=== PATIENT | male | born 1950 | race Caucasian/White ===

== ENCOUNTER 2019-02-21 16:03 | Inpatient (IN) ==
[2019-02-21] MEDS ORDERED: 0.9 % Sodium Chloride 1,000 ML IVC ONE ×2 (16:33→21:16)
--- NOTE | 2019-02-21 16:33 | Emergency Department Note ---
Disposition Clinical Impression: TEMO (acute kidney injury) UTI (urinary tract infection) Qualifiers: Urinary tract infection type: site unspecified Hematuria presence: with hematuria Qualified Code(s): N39.0 - Urinary tract infection, site not specified Urolithiasis Qualifiers: Urinary calculus location: ureter Qualified Code(s): N20.1 - Calculus of ureter Disposition: Admitted As Inpatient Condition: Undetermined Time of Disposition: 19:14 Abdominal Pain HPI - General Chief Complaint: ED Abdominal Pain Stated Complaint: Abdominal pain Time Seen by Provider: 02/21/19 16:07 Source: patient, EMS Mode of arrival: EMS Limitations: no limitations Nursing Notes Reviewed: Yes Vital Signs Reviewed: Yes - History of Present Illness HPI Narrative: 68-year-old male with complaint of right lower quadrant and right flank abdominal pain that started earlier this morning. Associated nausea without vomiting. Patient also states that he is having some difficulty urinating with this. Patient denies any other complaints at this time. He is uncomfortable on evaluation and mildly diaphoretic. The patient has extreme and exquisite tenderness to the right lower quadrant. No other acute complaints noted at this time. The patient was sent from the [place] urgent care for evaluation as there imaging machines are currently down. Patient denies any difficulty breathing, chest pain, melena, hematochezia, diarrhea, vomiting. Pain Scale: 8 - Related Data Home Medications Medication Instructions Recorded Confirmed Cetirizine HCl [24Hour Allergy] 10 mg PO DAILY 02/21/19 02/21/19 Fluticasone Propionate Nasal 50 mcg NS BID PRN 02/21/19 02/21/19 [Flonase] Ketotifen Fumarate [Zaditor] 1 drop BOTH EYES BID 02/21/19 02/21/19 Lisinopril [Zestril] 20 mg PO DAILY 02/21/19 02/21/19 Simvastatin [Zocor] 20 mg PO HS 02/21/19 02/21/19 Tamsulosin [Flomax] 0.4 mg PO DAILY 02/21/19 02/21/19 Allergies Allergy/AdvReac Type Severity Reaction Status Date / Time No Known Allergies Allergy Verified 02/21/19 16:11 All systems ED: reviewed and negative except as stated. Constitutional: Denies: fever, chills, weakness Cardiovascular: Denies: chest pain Respiratory: Denies: dyspnea Gastrointestinal: Reports: abdominal pain, nausea. Denies: vomiting, diarrhea, constipation, hematemesis, melena, hematochezia Genitourinary: Denies: urgency, dysuria Musculoskeletal: Denies: back pain, neck pain Integumentary: Denies: rash Neurological: Denies: headache Abdominal Pain PMH - Past Medical History Medical history: Reports: hyperlipidemia, hypertension Reports: diverticulosis Male Surgical History: Reports: knee replacement Psychiatric history: Reports: no psych history - Social History Smoking status: Never smoker Alcohol use: Reports: rarely Drug use: Reports: none Physical Exam - General Limitations: no limitations General appearance: alert, in no apparent distress - Head Head exam: atraumatic, normocephalic, normal inspection - Eye Eye exam: Present: normal appearance, PERRL, EOMI - ENT ENT exam: normal exam, normal oropharynx, mucous membranes moist - Neck Neck exam: Present: normal inspection, full ROM, trachea midline - Chest Chest inspection: Present: normal inspection, symmetric chest wall rise - Respiratory Respiratory exam: Present: normal lung sounds bilaterally - Cardiovascular Cardiovascular exam: Present: regular rate, normal rhythm, normal heart sounds - Abdominal Exam Abdominal exam: Present: soft, tenderness (RLQ and right flank), guarding, ten derness at [place]'s Point. Absent: distention, rebound, rigidity, Whitley's sign, Rovsing's sign, hernia - Extremities Exam Extremities exam: Present: normal inspection, full ROM, normal capillary refill. Absent: tenderness, pedal edema - Neurological Exam Neurological exam: Present: alert, oriented X3 - Skin Skin exam: Present: warm, dry, intact, normal color Course Vital Signs Temperature 98.2 F 02/21/19 16:12 Pulse Rate 65 02/21/19 16:12 Respiratory Rate 16 02/21/19 16:12 Blood Pressure 129/80 02/21/19 16:12 O2 Sat by Pulse Oximetry 99 02/21/19 16:12 Temperature 98.2 F 02/21/19 16:12 Pulse Rate 65 02/21/19 16:12 Respiratory Rate 16 02/21/19 16:12 Blood Pressure 129/80 02/21/19 16:12 O2 Sat by Pulse Oximetry 99 02/21/19 16:12 Oxygen Delivery Oxygen Delivery Room Air Abdominal Pain - MDM Narrative Medical decision making narrative: Patient's workup in the emergency department demonstrates a leukocytosis. The patient's urine appears to be infected. There appears to be a 4 mm stone at the right UVJ. 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 Patient's kidney function is sitting in a GFR 49. I do not have previous to 4 on record and the patient has a horseshoe kidney. With the hydronephrosis, what appears to be possible [place] eye combined with the infected stone, we will treat the patient with Rocephin here in the ED and consult urology. Urology recommended conservative management at this time. I spoke with hospitalist who agrees to accept the patient to admission. Accepted by Dr. Ballesteros. - Lab Data Lab results reviewed: Yes I reviewed the patient's lab results. Result diagrams: 02/21/19 16:27 02/21/19 16:27 Lab Results 02/21/19 02/21/19 02/21/19 Range/Units 15:20 16:27 16:27 WBC 13.1 H (4.3-11.1) K/mcL RBC 5.06 (4.19-5.50) M/mcL Hgb 15.6 (12.9-16.9) g/dL Hct 45.9 (37.5-50.1) % MCV 90.7 (83.0-100.0) fL MCH 30.8 (28.0-33.3) pg MCHC 34.0 (31.6-35.5) g/dL RDW 13.2 (11.5-14.5) % Plt Count 289 (140-400) K/mcL MPV 10.7 (9.4-12.4) fL Immature Gran % 0.4 (0-4) % Seg Neutrophils % 81.9 % Lymphocytes % 9.0 % Monocytes % 8.4 % Eosinophils % 0.1 % Basophils % 0.2 % Neutrophils # 10.8 H (1.6-8.9) K/mcL Lymphocytes # 1.2 (0.6-4.6) K/mcL Monocytes # 1.1 (0.0-1.3) K/mcL Eosinophils # 0.0 (0.0-0.6) K/mcL Basophils # 0.0 (0.0-0.2) K/mcL Sodium 141 (136-145) mEq/L Potassium 3.4 L (3.5-5.1) mEq/L Chloride 106 (98-107) mEq/L Carbon Dioxide 18 L (23-29) mEq/L BUN 19 (8-23) mg/dL Creatinine 1.42 H (0.70-1.30) mg/dL Est GFR ( Amer) 60 (> 60) Est GFR (Non-Af Amer) 49 L (> 60) BUN/Creatinine Ratio 13 (6-26) Glucose 140 H (70-105) mg/dL Calculated Osmolality 297 (280-300) Calcium 9.7 (8.6-10.3) mg/dL Total Bilirubin 1.2 H (0.3-1.0) mg/dL Direct Bilirubin 0.2 (0.0-0.2) mg/dL Indirect Bilirubin 1.0 (0.0-1.2) mg/dL AST 17 (13-39) Units/L ALT 19 (7-52) Units/L Alkaline Phosphatase 43 (34-104) Units/L Serum Total Protein 7.0 (6.4-8.9) g/dL Albumin 4.6 (3.5-5.7) g/dL Globulin 2.4 (2.4-3.5) g/dL Albumin/Globulin Ratio 1.9 (1.1-2.2) Urine Color Yellow (Yellow) Urine Clarity Clear (Clear) Urine pH 6.5 (5.0-8.0) pH Units Ur Specific [place] 1.011 (1.010-1.025) Urine Protein Trace (Neg-Trace) mg/dL Urine Glucose (UA) Normal (Normal) mg/dL Urine Ketones 40 H (Negative) mg/dL Urine Blood Small H (Negative) Urine Nitrite Negative (Negative) Urine Bilirubin Negative (Negative) Urine Urobilinogen Normal (Normal) mg/dL Ur Leukocyte Esterase Trace H (Negative) Urine Microscopic RBC 15-30 H (0-3) per hpf Urine Microscopic WBC 15-30 H (0-3) per hpf Ur Squamous Epith Cells Many H (None-Few) per lpf Urine Bacteria Many H (None-Few) per hpf Hyaline Casts Few (None-Few) per lpf Ur Culture Indicated? YES A (NO) - Radiology Data Radiology results reviewed: Yes I reviewed the patient's radiology results. Abdomen/Pelvis CT 02/21/19 16:10 IMPRESSION: Horseshoe kidney with moderate right hydroureteronephrosis secondary to a 4 mm stone in the distal right ureter. D/ / Bonifacio Huddleston MD / Bonifacio Huddleston MD Interpreting Provider: Bonifacio Huddleston MD - EKG Data EKG attestation: Yes I reviewed and interpreted this EKG. EKG results narrative: Heart rate 61 beats for minute. Sinus rhythm. No ST elevation or ST depression noted. PVCs noted. No other acute changes noted. Attestation Statement - Attestation Attestation: I, Jimmie Barriga, examined this patient and my medical decision-making was reviewed with the LEAD SCIENTIST/PA/Advanced Practice Nurse/Resident Physician. I agree with the documented findings, disposition and treatment plan as described except to the extent set forth below. 68-year-old male presents emergency department with concerns of abdominal pain. Patient presents from the [place] for further evaluation. He is diaphoretic on initial evaluation and states that he has right flank pain. Patient does have some mild tenderness to palpation of the right lower quadrant as well. Patient denies recent fever, denies syncopal episode, hematochezia, melena. CT of the abdomen and pelvis shows a horseshoe kidney, ureterolithiasis which is likely the cause of the patient's pain. Patient does have hydroureter and moderate hydronephrosis. CT results were discussed with the patient. Contacted the urologist, Dr. Carroll, who recommended admission to the hospital and he will evaluate in the hospital. Patient had a questionable urinary tract infection he was given antibiotics. Patient was admitted to the hospitalist for further care and evaluation.
[2019-02-21 16:52] LABS: Basophils % 0.2 %; Eosinophils % 0.1 %; Hematocrit 45.9 % (37.5-50.1); Hemoglobin 15.6 g/dL (12.9-16.9); Immature Granulocytes % 0.4 % (0-4); Lymphocytes # 1.2 K/mcL (0.6-4.6); Mean Corpuscular Hemoglobin 30.8 pg (28.0-33.3); Mean Corpuscular Volume 90.7 fL (83.0-100.0); Mean Platelet Volume 10.7 fL (9.4-12.4); Monocytes # 1.1 K/mcL (0.0-1.3); Monocytes % 8.4 %; Neutrophils # 10.8 K/mcL (1.6-8.9); Platelet Count 289 K/mcL (140-400); Red Blood Count 5.06 M/mcL (4.19-5.50); Red Cell Distribution Width 13.2 % (11.5-14.5); Segmented Neutrophils % 81.9 %; White Blood Count 13.1 K/mcL (4.3-11.1)
[2019-02-21 17:25] LABS: Albumin 4.6 g/dL (3.5-5.7); Albumin/Globulin Ratio 1.9 (1.1-2.2); Bilirubin,Direct 0.2 mg/dL (0.0-0.2); Bilirubin,Total 1.2 mg/dL (0.3-1.0); Calcium 9.7 mg/dL (8.6-10.3); Globulin 2.4 g/dL (2.4-3.5); Potassium 3.4 mEq/L (3.5-5.1)
[2019-02-21 17:43] LABS: Bilirubin,Urine Negative (Negative); Blood,Urine Small (Negative); Clarity,Urine Clear (Clear); Color,Urine Yellow (Yellow); Glucose,Urine (UA) Normal (Normal); Ketones,Urine 40 mg/dL (Negative); Leukocyte Esterase,Urine Trace (Negative); Nitrite,Urine Negative (Negative); PH,Urine 6.5 pH Units (5.0-8.0); Protein,Urine Trace mg/dL (Neg-Trace); Specific Gravity,Urine 1.011 (1.010-1.025); Urobilinogen,Urine Normal (Normal)
[2019-02-21 17:46] LABS: Bacteria,Urine Many per hpf (None-Few); Hyaline Casts,Urine Few per lpf (None-Few); RBC,Urine 15-30 per hpf (0-3); Squamous Epithelial Cell,Urine Many per lpf (None-Few); WBC,Urine 15-30 per hpf (0-3)
[2019-02-21] MEDS ORDERED: cefTRIAXone 1,000 MG in Water for inj. (sterile) 20 ML 10 ML IVP ONE (17:57)
[2019-02-21] MEDS ORDERED: Ondansetron 4 MG/2 ML VIAL IVP ONE (18:05)
[2019-02-21] MEDS ORDERED: Ondansetron 4 MG/2 ML VIAL IVP PRN (20:22)
[2019-02-21] MEDS ORDERED: Naloxone 0.4 MG/ML INJ IVP PRN (20:22)
--- NOTE | 2019-02-21 20:31 | Internal Med History&Physical ---
Date of Encounter: 02/21/19 Time of Encounter: 19:24 Internal Medicine - H&P: HPI Chief complaint: Ureteral stone Admitted From: Emergency Dept Plans for Post Hospital Care: Home History of present illness: Mr. Chaudhary is a 68 year old male Patient presents to the emergency department from the [place] for right lower quadrant pain. He says the pain began earlier this morning at around 9 AM, and radiates to his back. He has never had pain like this before, but he has had diverticulitis which she thought may be this was the cause of his current pain. However his previous episode was left sided not the right side. He is also had associated nausea and vomiting, as well as decreased urine output. He has not been able to eat much secondary to nausea. The CT scanner at the [place] was not functioning, so he was referred to the ER for further evaluation. In the emergency room patient's initial vital signs were within normal limits. CBC notable for white count of 13.1 BMP notable for a potassium of 3.4 and a creatinine of 1.42. Urinalysis showed small blood, trace leukocyte esterase, 15-30 white blood cells. Culture indicated An abdomen pelvis CT was performed that showed a horseshoe kidney with moderate right hydronephrosis secondary to a 4 mm stone in the distal right ureter. Patient was started on Rocephin, Flomax, given 1 L of IV fluids and urology on- call was notified. Urology agreed to see the patient in the morning, and agreed to start patient on conservative management. Patient was admitted to the hospital on the hospitalist service with urology consult. Upon my evaluation, patient resting comfortably in the ER bed in no acute distress. He denies chest pain, diarrhea and constipation. His nausea has improved, after receiving Zofran. His right lower quadrant abdominal pain is also improved. He denies smoking, alcohol and other drugs. He has history of obstructive sleep apnea and uses a CPAP machine. He was aware previously that he has a horseshoe kidney. He denies significant family medical history including heart disease, renal disease and diabetes. He is a DNR/DNI. Past Med Surg Social Fam HX - Past Medical History Medical history: hyperlipidemia, hypertension Additional medical history: prostrate Psychiatric history: no psych history - Social History Smoking Status: Never smoker Smokeless Tobacco Status: No Alcohol use: rarely Drug use: none Internal Medicine - H&P: Meds Cetirizine HCl [24Hour Allergy] 10 mg PO DAILY 02/21/19 [History] Fluticasone Propionate Nasal [Flonase] 50 mcg NS BID PRN 02/21/19 [History] Ketotifen Fumarate [Zaditor] 1 drop BOTH EYES BID 02/21/19 [History] Lisinopril [Zestril] 20 mg PO DAILY 02/21/19 [History] Simvastatin [Zocor] 20 mg PO HS 02/21/19 [History] Tamsulosin [Flomax] 0.4 mg PO DAILY 02/21/19 [History] Allergy/AdvReac Type Severity Reaction Status Date / Time No Known Allergies Allergy Verified 02/21/19 16:11 All Systems PM: A 10-system review of systems was performed and is negative for pertinent findings except as documented above in the HPI. - Constitutional Vitals: Temp Pulse Resp BP Pulse Ox 98.2 F 55 18 156/86 97 02/21/19 16:12 02/21/19 18:17 02/21/19 20:22 02/21/19 20:22 02/21/19 18:17 General appearance: Present: cooperative, A&O X 3, pleasant, no acute distress, answers questions appropriately Exam: - - Head Head exam: Present: normal inspection - Eye Eye exam: Present: EOMI, normal appearance - Respiratory Respiratory exam: Present: CTAB. Absent: rales, respiratory distress, rhonchi, wheezes - Cardiovascular Cardiovascular exam: Present: RRR. Absent: diastolic murmur, systolic murmur Additional comments: PVCs seen on monitor - GI/Abdominal GI/Abdominal exam: Present: normal bowel sounds, soft, tenderness Additional comments: Right lower quadrant tenderness with palpation - Extremities Exam Extremities exam: Present: warm, radial pulses palpable and symmetrical. Absent: calf tenderness, pedal edema, tenderness - Neurological Exam Neurological exam: Present: no focal deficits, strengths equal and symetr throug hout. Absent: motor sensory deficit, facial droop, speech deficit - Skin Skin exam: Present: dry, normal color, warm Internal Med - H&P Results - Labs CBC & Chem 7: 02/21/19 16:27 02/21/19 16:27 Labs: Short CBC 02/21/19 Range/Units 16:27 WBC 13.1 H (4.3-11.1) K/mcL Hgb 15.6 (12.9-16.9) g/dL Hct 45.9 (37.5-50.1) % Plt Count 289 (140-400) K/mcL Neutrophils # 10.8 H (1.6-8.9) K/mcL BMP 02/21/19 16:27 Sodium 141 Potassium 3.4 L Chloride 106 Carbon Dioxide 18 L BUN 19 Creatinine 1.42 H Glucose 140 H Calcium 9.7 Liver Function 02/21/19 Range/Units 16:27 Total Bilirubin 1.2 H (0.3-1.0) mg/dL Direct Bilirubin 0.2 (0.0-0.2) mg/dL AST 17 (13-39) Units/L ALT 19 (7-52) Units/L Alkaline Phosphatase 43 (34-104) Units/L Albumin 4.6 (3.5-5.7) g/dL Urine 02/21/19 Range/Units 15:20 Urine Color Yellow (Yellow) Urine Clarity Clear (Clear) Urine pH 6.5 (5.0-8.0) pH Units Ur Specific [place] 1.011 (1.010-1.025) Urine Protein Trace (Neg-Trace) mg/dL Urine Glucose (UA) Normal (Normal) mg/dL - Impressions ITS Impressions Abdomen/Pelvis CT 02/21/19 16:10 IMPRESSION: Horseshoe kidney with moderate right hydroureteronephrosis secondary to a 4 mm stone in the distal right ureter. D/ / Bonifacio Huddleston MD / Bonifacio Huddleston MD Interpreting Provider: Bonifacio Huddleston MD - Assessment and Plan (1) Urolithiasis Current Visit: Yes Status: Acute Assessment and plan: As seen on abdominal CT. Urology notified and will see the patient in the morning. Flomax given in the emergency room. Follow-up urology consult Pain management as needed Nothing by mouth after midnight IV fluid hydration Continue ceftriaxone Qualifiers: Urinary calculus location: ureter Qualified Code(s): N20.1 - Calculus of ureter (2) TEMO (acute kidney injury) Current Visit: Yes Status: Acute Assessment and plan: Patient received 1 L IV fluids in the emergency room. Has history of horseshoe kidney. Repeat labs in the morning Continue IV fluid hydration (3) UTI (urinary tract infection) Current Visit: Yes Status: Acute Assessment and plan: Patient started on ceftriaxone, urine culture pending. Continue ceftriaxone Follow up urine culture Qualifiers: Urinary tract infection type: site unspecified Hematuria presence: with hematuria Qualified Code(s): N39.0 - Urinary tract infection, site not specified; R31.9 - Hematuria, unspecified (4) BENITEZ on CPAP Current Visit: Yes Status: Acute Assessment and plan: Continue CPAP Respiratory therapy consult (5) History of cardiac arrhythmia Current Visit: Yes Status: Acute Assessment and plan: Patient states that he has been worked up out patient for a cardiac arrhythmia, but states that his out patient doctor was no longer concerned about it. On telemetry in the room patient was noted to have an occasional PVC on the monitor. Patient states that he has had his heart stop for a few seconds on occasion. Has been dealing with that for several years. No chest pain. Cardiac telemetry Continue to monitor. (6) DVT prophylaxis Current Visit: Yes Status: Acute Assessment and plan: Subcutaneous heparin - Time Spent With Patient Total time spent is greater than 50% in coordination of care (as documented) at patient's floor/unit and/or counseling patient: Greater than 35 minutes
[2019-02-21] MEDS ORDERED: OXYCODONE Oral CONC 10 MG/0.5 ML ORAL.SYG SL PRN ×2 (21:17)
--- NOTE | 2019-02-21 21:39 | Urology - Consult Note ---
Date of Encounter: 02/21/19 Time of Encounter: 21:37 - Assessment and Plan (1) TEMO (acute kidney injury) Current Visit: Yes Status: Acute Assessment and plan: Unsure of what patient's baseline serum creatinine is. His 1.4 elevation could be related to dehydration. Will encourage fluids by mouth as well as IV. (2) Urolithiasis Current Visit: Yes Status: Acute Assessment and plan: Patient with a distal right ureteral stone. Patient very comfortable upon evaluation. We will continue at this time with medical expulsion therapy. Patient's urinalysis inconclusive in regards to possible UTI. Continue with broad-spectrum antibiotics. No urgent need for stone extraction or stent placement at this time. Will reevaluate tomorrow. Qualifiers: Urinary calculus location: ureter Qualified Code(s): N20.1 - Calculus of ureter (3) Hydronephrosis due to obstruction of ureter Current Visit: Yes Status: Acute Assessment and plan: Patient with moderate hydronephrosis on his right side. This is likely secondary to distal ureteral stone. Expectation that this will resolve with either spontaneous passage of stone or surgical removal. We will place patient on Flomax if he is not ready on this medication. Urology CN:HPI Consult date: 02/21/19 Reason for consult Urology: Hydronephrosis Requesting physician: Thomas Ballesteros History of present illness: Jamin is a 68-year-old male with a history of sudden onset lower abdominal discomfort. Patient also with some nausea. He presented to the [place] urgent care and was transferred to our facility. CT scan had been performed which revealed a distal 4 mm stone. Patient had blood work performed which showed a leukocytosis of 13,000. No fevers. Patient's urinalysis showed trace leukocytes without nitrites. He has been having some persistent nausea but this is improved with medication. His lower abdominal discomfort is currently a 2 out of 10 sharp in nature with no obvious radiation. Patient also admits to not having a bowel movement today and believe some of his discomfort could be related to constipation. Patient having poor by mouth intake today. Past Med Surg Social Fam HX - Past Medical History Medical history: hyperlipidemia, hypertension Additional medical history: prostrate Psychiatric history: no psych history - Past Surgical History Surgical History: no surgical history - Social History Smoking Status: Never smoker Smokeless Tobacco Status: No Alcohol use: rarely Drug use: none - Family History Mother Name: Patient admits to history of kidney stones in both of his parents. Medications and Allergies Cetirizine HCl [24Hour Allergy] 10 mg PO DAILY 02/21/19 [History] Fluticasone Propionate Nasal [Flonase] 50 mcg NS BID PRN 02/21/19 [History] Ketotifen Fumarate [Zaditor] 1 drop BOTH EYES BID 02/21/19 [History] Lisinopril [Zestril] 20 mg PO DAILY 02/21/19 [History] Simvastatin [Zocor] 20 mg PO HS 02/21/19 [History] Tamsulosin [Flomax] 0.4 mg PO DAILY 02/21/19 [History] Allergy/AdvReac Type Severity Reaction Status Date / Time No Known Allergies Allergy Verified 02/21/19 16:11 Review of Systems - Constitutional malaise, no chills, no fever(s), no weight loss - EENT Nose, mouth and throat: no dizziness - Cardiovascular no chest pain, no dyspnea - Gastrointestinal abdominal pain, nausea, vomiting - Genitourinary as per HPI - Musculoskeletal no back pain, no numbness - Integumentary no erythema - Neurological no confusion - Psychiatric no confusion - Hematologic/Lymphatic no easy bruising, no lymphadenopathy - Allergic/Immunologic no throat swelling Exam Initial Vital Signs Temp Pulse Resp BP Pulse Ox 98.2 F 65 16 129/80 99 02/21/19 16:12 02/21/19 16:12 02/21/19 16:12 02/21/19 16:12 02/21/19 16:12 General/Neuological: alert and oriented x 3 Eyes: normal pupils, non-icteric Neck: no lymphadenopathy noted, supple to touch Cardiovascular: RRR, no jvd Respiratory: normal respiratory effort, no wheezing ABD: soft, nontender, no masses palpated, mildly distended Back: no pain on percussion bilaterally Skin: no rashes noted Musculoskeletal: normal gait, FROMx4 Urology Results - Labs 02/21/19 16:27 02/21/19 16:27 Abnormal lab results WBC 13.1 K/mcL (4.3-11.1) H 02/21/19 16:27 10.8 K/mcL (1.6-8.9) H 02/21/19 16:27 Potassium 3.4 mEq/L (3.5-5.1) L 02/21/19 16:27 Carbon Dioxide 18 mEq/L (23-29) L 02/21/19 16:27 1.42 mg/dL (0.70-1.30) H 02/21/19 16:27 Est GFR (Non-Af Amer) 49 (> 60) L 02/21/19 16:27 Glucose 140 mg/dL (70-105) H 02/21/19 16:27 1.2 mg/dL (0.3-1.0) H 02/21/19 16:27 40 mg/dL (Negative) H 02/21/19 15:20 Small (Negative) H 02/21/19 15:20 Ur Leukocyte Esterase Trace (Negative) H 02/21/19 15:20 15-30 per hpf (0-3) H 02/21/19 15:20 15-30 per hpf (0-3) H 02/21/19 15:20 Ur Squamous Epith Cells Many per lpf (None-Few) H 02/21/19 15:20 Many per hpf (None-Few) H 02/21/19 15:20 Ur Culture Indicated? YES (NO) A 02/21/19 15:20 Diabetes panel 02/21/19 Range/Units 16:27 Sodium 141 (136-145) mEq/L Potassium 3.4 L (3.5-5.1) mEq/L Chloride 106 (98-107) mEq/L Carbon Dioxide 18 L (23-29) mEq/L BUN 19 (8-23) mg/dL Creatinine 1.42 H (0.70-1.30) mg/dL Glucose 140 H (70-105) mg/dL Calcium 9.7 (8.6-10.3) mg/dL AST 17 (13-39) Units/L ALT 19 (7-52) Units/L Alkaline Phosphatase 43 (34-104) Units/L Albumin 4.6 (3.5-5.7) g/dL Calcium panel 02/21/19 Range/Units 16:27 Calcium 9.7 (8.6-10.3) mg/dL Albumin 4.6 (3.5-5.7) g/dL Pituitary panel 02/21/19 Range/Units 16:27 Sodium 141 (136-145) mEq/L Potassium 3.4 L (3.5-5.1) mEq/L Chloride 106 (98-107) mEq/L Carbon Dioxide 18 L (23-29) mEq/L BUN 19 (8-23) mg/dL Creatinine 1.42 H (0.70-1.30) mg/dL Glucose 140 H (70-105) mg/dL Calcium 9.7 (8.6-10.3) mg/dL Adrenal panel 02/21/19 Range/Units 16:27 Sodium 141 (136-145) mEq/L Potassium 3.4 L (3.5-5.1) mEq/L Chloride 106 (98-107) mEq/L Carbon Dioxide 18 L (23-29) mEq/L BUN 19 (8-23) mg/dL Creatinine 1.42 H (0.70-1.30) mg/dL Glucose 140 H (70-105) mg/dL Calcium 9.7 (8.6-10.3) mg/dL Total Bilirubin 1.2 H (0.3-1.0) mg/dL AST 17 (13-39) Units/L ALT 19 (7-52) Units/L Alkaline Phosphatase 43 (34-104) Units/L Albumin 4.6 (3.5-5.7) g/dL All other labs normal. - Imaging CT scan - abdomen: image reviewed CT scan - pelvis: image reviewed (Personally reviewed CT scan revealed distal 4 mm stone at the right UVJ with horseshoe kidney) Consult Discharge Plan - Plan [facility]Primary Care Provider[facility] -
[2019-02-22] MEDS: *HR* Heparin 5,000 UNIT/ML VIAL SQ SCH ×2 (05:46→18:31)
[2019-02-22 07:38] LABS: Hematocrit 41.2 % (37.5-50.1); Mean Corpuscular HGB Conc 33.3 g/dL (31.6-35.5); Mean Corpuscular Hemoglobin 30.9 pg (28.0-33.3); Mean Corpuscular Volume 92.8 fL (83.0-100.0); Mean Platelet Volume 10.7 fL (9.4-12.4); Platelet Count 238 K/mcL (140-400); Red Blood Count 4.44 M/mcL (4.19-5.50); Red Cell Distribution Width 13.9 % (11.5-14.5); White Blood Count 9.3 K/mcL (4.3-11.1)
[2019-02-22 07:39] LABS: Hemoglobin 13.7 g/dL (12.9-16.9)
[2019-02-22 07:54] LABS: Calcium 8.2 mg/dL (8.6-10.3); Potassium 3.8 mEq/L (3.5-5.1)
--- NOTE | 2019-02-22 08:13 | Internal Med Progress Note ---
<Yoana Bryant - Last Filed: 02/22/19 13:53> Hospitalist Progress Note - Encounter Date of Encounter: 02/22/19 - Exam Vitals: Temp Pulse Resp BP Pulse Ox 98.2 F 65 17 120/61 95 02/22/19 07:00 02/22/19 07:00 02/22/19 07:00 02/22/19 07:00 02/22/19 07:00 - Assessment and Plan (1) UTI (urinary tract infection) Current Visit: Yes Status: Acute (2) Urolithiasis Current Visit: Yes Status: Acute (3) TEOM (acute kidney injury) Current Visit: Yes Status: Acute (4) DVT prophylaxis Current Visit: Yes Status: Acute (5) BENITEZ on CPAP Current Visit: Yes Status: Acute (6) History of cardiac arrhythmia Current Visit: Yes Status: Acute - Time Spent with Patient Total time spent is greater than 50% in coordination of care (as documented) at patient's floor/unit and/or counseling patient: Internal Medicine: Result - Labs CBC & Chem 7: 02/22/19 06:21 02/22/19 06:21 Labs: Short CBC 02/21/19 02/22/19 Range/Units 16:27 06:21 WBC 13.1 H 9.3 (4.3-11.1) K/mcL Hgb 15.6 13.7 D (12.9-16.9) g/dL Hct 45.9 41.2 (37.5-50.1) % Plt Count 289 238 (140-400) K/mcL Neutrophils # 10.8 H (1.6-8.9) K/mcL BMP 02/21/19 02/22/19 16:27 06:21 Sodium 141 142 Potassium 3.4 L 3.8 Chloride 106 106 Carbon Dioxide 18 L 24 BUN 19 18 Creatinine 1.42 H 1.44 H Glucose 140 H 108 H Calcium 9.7 8.2 L Liver Function 02/21/19 Range/Units 16:27 Total Bilirubin 1.2 H (0.3-1.0) mg/dL Direct Bilirubin 0.2 (0.0-0.2) mg/dL AST 17 (13-39) Units/L ALT 19 (7-52) Units/L Alkaline Phosphatase 43 (34-104) Units/L Albumin 4.6 (3.5-5.7) g/dL Urine 02/21/19 Range/Units 15:20 Urine Color Yellow (Yellow) Urine Clarity Clear (Clear) Urine pH 6.5 (5.0-8.0) pH Units Ur Specific [place] 1.011 (1.010-1.025) Urine Protein Trace (Neg-Trace) mg/dL Urine Glucose (UA) Normal (Normal) mg/dL - Impressions Impressions Abdomen/Pelvis CT 02/21/19 16:10 IMPRESSION: Horseshoe kidney with moderate right hydroureteronephrosis secondary to a 4 mm stone in the distal right ureter. D/ / Bonifacio Huddleston MD / Bonifacio Huddleston MD Interpreting Provider: Bonifacio Huddleston MD Consult Discharge Plan - Plan [facility]errals: [facility] [Primary Care Provider] - - Attending Attestation I examined this patient and my medical decision-making was reviewed with the Resident Physician Dr Solomon. I agree with the documented findings, disposition and treatment plan as described except to the extent set forth below. Mr Chaudhary is admitted with urolithiasis with hydroureteronephrosis awake, overall pain is controlled, now able to be up walking, urinary stream is improving, has not yet passed stone. no fevers, chills, n/v today gen- awake, alert, appears stated age cv- reg rate and rhythm, normal s1s2, no le edema lungs- ctabl, normal resp effort on room air abd- soft, non tender, non distended Urolithiasis with hydroureteronephrosis Possible UTI Possible TEMO, baseline kidney function unknown, stable - appreciate urology input, cont med management, IVFs, npo p mn for possible stone extraction in am Acute Urinary retention- resovled with st cath- cont to monitor further diagnoses and plan as noted by resident <Kirti Solomon - Last Filed: 02/22/19 14:23> Hospitalist Progress Note - Encounter Date of Encounter: 02/22/19 Time of Encounter: 08:00 - Subjective Interval History: Patient admitted for right-sided urolithiasis. Today he is laying in bed with mild distress. He reported that his right side is hurting however is better than at admission. He denies fever, chills, dysuria, nausea, vomiting. He did have some hematuria. He stated he is not passed the stone yet. He stated that urology told him that if he does not passed the stone by Saturday that he will be taken to the OR. - Exam Vitals: Temp Pulse Resp BP Pulse Ox 98.2 F 65 17 120/61 95 02/22/19 07:00 02/22/19 07:00 02/22/19 07:00 02/22/19 07:00 02/22/19 07:00 Exam: Gen.: Vitals noted. No acute distress. AAOx3 HEENT: oropharynx clear, Normocephalic, atraumatic Cardiac: RRR, no murmur, +S1/S2 Pulmonary: CTA bilaterally, no wheezes, rales or rhonchi, equal chest expansion Abdomen: soft, right lower quadrant tender, Bowel sounds noted, no guarding Back: right CVA tenderness MSK: ROM intact, no joint swelling noted Extremities: no BLE edema, nontender calf, no cyanosis or clubbing Neuro: A&Ox3, moves all extremities, no focal deficits Psych: Appropriate mood and behavior - Assessment and Plan (1) Urolithiasis Current Visit: Yes Status: Acute Assessment and Plan: Right-sided urolithiasis on abdominal CT -abdomen/pelvis CT showing horseshoe kidney with moderate right hydroureteronephrosis secondary to a 4 mm 7 the distal right ureter. -Urinalysis concerning for potential UTI -afebrile, hemodynamically stable, WC WNL Plan -urology consulted, appreciate recommendations. Per nursing and patient the urologist told the patient that if he does not pass the stone by Saturday then he will take him to the OR for extraction. -Continue IV fluids and encourage oral hydration -continue with Flomax -will strain urine to evaluate for stone -PRN pain medication and Zofran for nausea -continue supportive care (2) UTI (urinary tract infection) Current Visit: Yes Status: Acute Assessment and Plan: Patient denies history of UTI. He denies dysuria. Admits hematuria. -Urinalysis concerning for possible UTI with leukocyte esterase and WBC 15 to 30 -urine culture pending Plan -continue treatment with Rocephin -await urine culture (3) TEMO (acute kidney injury) Current Visit: Yes Status: Acute Assessment and Plan: Acute kidney injury does likely post renal in the setting of urolithiasis on right may also be contributed by prerenal from dehydration. Creatinine at admission 1.42 -creatinine 1.44 worsened -I&O 1000/350 + 650 -straight cath overnight 350cc Plan -continue IV fluids -monitor serum creatinine and urine output -avoid nephrotoxic agents renal dust medications (4) BENITEZ on CPAP Current Visit: Yes Status: Acute Assessment and Plan: History of BENITEZ using the CPAP at bedtime. Continue treatment. (5) History of cardiac arrhythmia Current Visit: Yes Status: Acute (6) DVT prophylaxis Current Visit: Yes Status: Acute Assessment and Plan: Heparin SQ - Time Spent with Patient Total time spent is greater than 50% in coordination of care (as documented) at patient's floor/unit and/or counseling patient: Internal Medicine: Result - Labs CBC & Chem 7: 02/22/19 06:21 02/22/19 06:21 Labs: Short CBC 02/21/19 02/22/19 Range/Units 16:27 06:21 WBC 13.1 H 9.3 (4.3-11.1) K/mcL Hgb 15.6 13.7 D (12.9-16.9) g/dL Hct 45.9 41.2 (37.5-50.1) % Plt Count 289 238 (140-400) K/mcL Neutrophils # 10.8 H (1.6-8.9) K/mcL BMP 02/21/19 02/22/19 16:27 06:21 Sodium 141 142 Potassium 3.4 L 3.8 Chloride 106 106 Carbon Dioxide 18 L 24 BUN 19 18 Creatinine 1.42 H 1.44 H Glucose 140 H 108 H Calcium 9.7 8.2 L Liver Function 02/21/19 Range/Units 16:27 Total Bilirubin 1.2 H (0.3-1.0) mg/dL Direct Bilirubin 0.2 (0.0-0.2) mg/dL AST 17 (13-39) Units/L ALT 19 (7-52) Units/L Alkaline Phosphatase 43 (34-104) Units/L Albumin 4.6 (3.5-5.7) g/dL Urine 02/21/19 Range/Units 15:20 Urine Color Yellow (Yellow) Urine Clarity Clear (Clear) Urine pH 6.5 (5.0-8.0) pH Units Ur Specific [place] 1.011 (1.010-1.025) Urine Protein Trace (Neg-Trace) mg/dL Urine Glucose (UA) Normal (Normal) mg/dL - Impressions Impressions Abdomen/Pelvis CT 02/21/19 16:10 IMPRESSION: Horseshoe kidney with moderate right hydroureteronephrosis secondary to a 4 mm stone in the distal right ureter. D/ / Bonifacio Huddleston MD / Bonifacio Huddleston MD Interpreting Provider: Bonifacio Huddleston MD __ <Yoana Bryant - Last Filed: 02/22/19 13:53> (1) UTI (urinary tract infection) Qualifiers: Urinary tract infection type: site unspecified Hematuria presence: with hematuria Qualified Code(s): N39.0 - Urinary tract infection, site not specified; R31.9 - Hematuria, unspecified (2) Urolithiasis Qualifiers: Urinary calculus location: ureter Qualified Code(s): N20.1 - Calculus of ureter <Kirti Solomon - Last Filed: 02/22/19 14:23> (1) Urolithiasis Qualifiers: Urinary calculus location: ureter Qualified Code(s): N20.1 - Calculus of ureter (2) UTI (urinary tract infection) Qualifiers: Urinary tract infection type: site unspecified Hematuria presence: with hematuria Qualified Code(s): N39.0 - Urinary tract infection, site not specified; R31.9 - Hematuria, unspecified
[2019-02-22] MEDS: 0.9 % Sodium Chloride 1,000 ML IVC SCH ×2 (09:05→18:32)
--- NOTE | 2019-02-22 09:32 | Urology Progress Note ---
Date of Encounter: 02/22/19 Time of Encounter: 09:30 - Assessment and Plan (1) TEMO (acute kidney injury) Current Visit: Yes Status: Acute Assessment and plan: Stable at this time. Unfortunately we do not have any other labs to compare. (2) Urolithiasis Current Visit: Yes Status: Acute Assessment and plan: Patient like to continue with medical expulsion therapy. Patient will try to increase his fluid intake as well as ambulate multiple times today. Patient will be scheduled for KUB in the morning tomorrow. Patient will be placed on the add-on board tomorrow for possible right ureteroscopic stone extraction if he fails to pass a stone. Qualifiers: Urinary calculus location: ureter Qualified Code(s): N20.1 - Calculus of ureter (3) Hydronephrosis due to obstruction of ureter Current Visit: Yes Status: Acute Progress Note Narrative: Patient seen this morning. Patient feeling much better. Patient had straight catheter done last night with only 350 mL's of urine returned. Patient is starting to void better on his own. I personally believe that the patient was significantly dehydrated. Patient's leukocytosis has resolved. Serum creatinine is 10 about the same at 1.44. minimql Pain at this time. Objective Initial Vital Signs Temp Pulse Resp BP Pulse Ox 98.2 F 65 16 129/80 99 02/21/19 16:12 02/21/19 16:12 02/21/19 16:12 02/21/19 16:12 02/21/19 16:12 - General physical appearance Present: well developed, well nourished - Abdomen Present: soft. Absent: tender - Integumentary Present: no rash - Musculoskeletal Present: normal posture - Labs 02/22/19 06:21 02/22/19 06:21 Diabetes panel 02/21/19 02/22/19 Range/Units 16:27 06:21 Sodium 141 142 (136-145) mEq/L Potassium 3.4 L 3.8 (3.5-5.1) mEq/L Chloride 106 106 (98-107) mEq/L Carbon Dioxide 18 L 24 (23-29) mEq/L BUN 19 18 (8-23) mg/dL Creatinine 1.42 H 1.44 H (0.70-1.30) mg/dL Glucose 140 H 108 H (70-105) mg/dL Calcium 9.7 8.2 L (8.6-10.3) mg/dL AST 17 (13-39) Units/L ALT 19 (7-52) Units/L Alkaline Phosphatase 43 (34-104) Units/L Albumin 4.6 (3.5-5.7) g/dL Calcium panel 02/21/19 02/22/19 Range/Units 16:27 06:21 Calcium 9.7 8.2 L (8.6-10.3) mg/dL Albumin 4.6 (3.5-5.7) g/dL Pituitary panel 02/21/19 02/22/19 Range/Units 16:27 06:21 Sodium 141 142 (136-145) mEq/L Potassium 3.4 L 3.8 (3.5-5.1) mEq/L Chloride 106 106 (98-107) mEq/L Carbon Dioxide 18 L 24 (23-29) mEq/L BUN 19 18 (8-23) mg/dL Creatinine 1.42 H 1.44 H (0.70-1.30) mg/dL Glucose 140 H 108 H (70-105) mg/dL Calcium 9.7 8.2 L (8.6-10.3) mg/dL Adrenal panel 02/21/19 02/22/19 Range/Units 16:27 06:21 Sodium 141 142 (136-145) mEq/L Potassium 3.4 L 3.8 (3.5-5.1) mEq/L Chloride 106 106 (98-107) mEq/L Carbon Dioxide 18 L 24 (23-29) mEq/L BUN 19 18 (8-23) mg/dL Creatinine 1.42 H 1.44 H (0.70-1.30) mg/dL Glucose 140 H 108 H (70-105) mg/dL Calcium 9.7 8.2 L (8.6-10.3) mg/dL Total Bilirubin 1.2 H (0.3-1.0) mg/dL AST 17 (13-39) Units/L ALT 19 (7-52) Units/L Alkaline Phosphatase 43 (34-104) Units/L Albumin 4.6 (3.5-5.7) g/dL Consult Discharge Plan - Plan [facility]errals: [facility] [Primary Care Provider] -
[2019-02-22] MEDS ORDERED: cefTRIAXone 1,000 MG in Water for inj. (sterile) 20 ML 10 ML IVP SCH (18:00)
[2019-02-22] MEDS: (Ketotifen Fumarate [Zaditor] 1 DROP) OP SCH (20:42)
[2019-02-23] MEDS: 0.9 % Sodium Chloride 1,000 ML IVC SCH (01:51)
[2019-02-23] MEDS: *HR* Heparin 5,000 UNIT/ML VIAL SQ SCH ×2 (06:00→17:51)
--- NOTE | 2019-02-23 07:22 | Urology Progress Note ---
Date of Encounter: 02/23/19 Time of Encounter: 07:21 - Assessment and Plan (1) TEMO (acute kidney injury) Current Visit: Yes Status: Acute (2) Urolithiasis Current Visit: Yes Status: Acute Assessment and plan: Patient to the operating room later today for right ureteroscopic stone extraction. Qualifiers: Urinary calculus location: ureter Qualified Code(s): N20.1 - Calculus of ureter (3) Hydronephrosis due to obstruction of ureter Current Visit: Yes Status: Acute Progress Note Narrative: Jamin is a 68-year-old male with a history of a distal right ureteral stone. Patient has failed to pass his stone. Pain well-controlled this time. Objective Initial Vital Signs Temp Pulse Resp BP Pulse Ox 98.2 F 65 16 129/80 99 02/21/19 16:12 02/21/19 16:12 02/21/19 16:12 02/21/19 16:12 02/21/19 16:12 - General physical appearance Present: well developed, well nourished - Abdomen Present: soft. Absent: tender - Labs 02/22/19 06:21 02/22/19 06:21 Diabetes panel 02/22/19 Range/Units 06:21 Sodium 142 (136-145) mEq/L Potassium 3.8 (3.5-5.1) mEq/L Chloride 106 (98-107) mEq/L Carbon Dioxide 24 (23-29) mEq/L BUN 18 (8-23) mg/dL Creatinine 1.44 H (0.70-1.30) mg/dL Glucose 108 H (70-105) mg/dL Calcium 8.2 L (8.6-10.3) mg/dL Calcium panel 02/22/19 Range/Units 06:21 Calcium 8.2 L (8.6-10.3) mg/dL Pituitary panel 02/22/19 Range/Units 06:21 Sodium 142 (136-145) mEq/L Potassium 3.8 (3.5-5.1) mEq/L Chloride 106 (98-107) mEq/L Carbon Dioxide 24 (23-29) mEq/L BUN 18 (8-23) mg/dL Creatinine 1.44 H (0.70-1.30) mg/dL Glucose 108 H (70-105) mg/dL Calcium 8.2 L (8.6-10.3) mg/dL Adrenal panel 02/22/19 Range/Units 06:21 Sodium 142 (136-145) mEq/L Potassium 3.8 (3.5-5.1) mEq/L Chloride 106 (98-107) mEq/L Carbon Dioxide 24 (23-29) mEq/L BUN 18 (8-23) mg/dL Creatinine 1.44 H (0.70-1.30) mg/dL Glucose 108 H (70-105) mg/dL Calcium 8.2 L (8.6-10.3) mg/dL Consult Discharge Plan - Plan Referrals: [facility] [Primary Care Provider] -
[2019-02-23 08:15] LABS: Hematocrit 40.3 % (37.5-50.1); Hemoglobin 13.3 g/dL (12.9-16.9); Mean Corpuscular Hemoglobin 30.3 pg (28.0-33.3); Mean Corpuscular Volume 91.8 fL (83.0-100.0); Mean Platelet Volume 10.6 fL (9.4-12.4); Platelet Count 241 K/mcL (140-400); Red Blood Count 4.39 M/mcL (4.19-5.50); Red Cell Distribution Width 13.6 % (11.5-14.5)
[2019-02-23 08:27] LABS: BUN/Creatinine Ratio 13 (6-26); Blood Urea Nitrogen 12 mg/dL (8-23); Calcium 8.6 mg/dL (8.6-10.3); Carbon Dioxide 24 mEq/L (23-29); Chloride 110 mEq/L (98-107); Glucose 114 mg/dL (70-105); Osmolality,Calculated 293 (280-300); Potassium 3.8 mEq/L (3.5-5.1); Sodium 141 mEq/L (136-145); eGFR For African Americans > 60 (> 60); eGFR For Non-African Americans > 60 (> 60)
--- NOTE | 2019-02-23 09:04 | Internal Med Progress Note ---
<Yoana Bryant - Last Filed: 02/23/19 13:53> Hospitalist Progress Note - Encounter Date of Encounter: 02/23/19 - Exam Vitals: Temp Pulse Resp BP Pulse Ox 97.7 F 61 13 142/88 96 02/23/19 12:32 02/23/19 12:32 02/23/19 12:32 02/23/19 12:32 02/23/19 12:32 - Assessment and Plan (1) UTI (urinary tract infection) Current Visit: Yes Status: Acute (2) Urolithiasis Current Visit: Yes Status: Acute (3) TEMO (acute kidney injury) Current Visit: Yes Status: Acute (4) DVT prophylaxis Current Visit: Yes Status: Acute (5) BENITEZ on CPAP Current Visit: Yes Status: Acute (6) History of cardiac arrhythmia Current Visit: Yes Status: Acute - Time Spent with Patient Total time spent is greater than 50% in coordination of care (as documented) at patient's floor/unit and/or counseling patient: Internal Medicine: Result - Labs CBC & Chem 7: 02/23/19 07:30 02/23/19 07:30 Labs: Short CBC 02/23/19 Range/Units 07:30 WBC 6.0 (4.3-11.1) K/mcL Hgb 13.3 (12.9-16.9) g/dL Hct 40.3 (37.5-50.1) % Plt Count 241 (140-400) K/mcL BMP 02/23/19 07:30 Sodium 141 Potassium 3.8 Chloride 110 H Carbon Dioxide 24 BUN 12 Creatinine 0.94 Glucose 114 H Calcium 8.6 - Impressions Impressions Fluoroscopy 02/23/19 00:00 IMPRESSION: Intraprocedural fluoroscopic spot images as above. See separate procedure report for more information. D/ / 02/23/2019 12:16:53 Walt Carter MD / [facility] Interpreting Provider: Walt Carter MD X-Ray 02/23/19 00:00 IMPRESSION: Intraprocedural fluoroscopic spot images as above. See separate procedure report for more information. D/ / 02/23/2019 12:16:53 Walt Carter [facility] Interpreting Provider: Walt Carter MD Consult Discharge Plan - Plan Referrals: [facility] [Primary Care Provider] - - Attending Attestation I examined this patient and my medical decision-making was reviewed with the Resident Physician Dr Cool. I agree with the documented findings, disposition and treatment plan as described except to the extent set forth below. Mr Chaudhary is admitted with urolithiasis with hydroureteronephrosis awake, no further pain, + hematuria yesterday, none today, going to likely be going to OR later. no fevers, chills, n/v. gen- awake, alert, appears stated age cv- reg rate and rhythm, normal s1s2 lungs- ctabl, normal resp effort on room air abd- soft,tender right flank, no gaurding Urolithiasis with hydroureteronephrosis Ruled out UTI- stop abx TEMO suspect was combination pre and post renal, resolved - appreciate urology input, OR lithotripsy and stone extraction w ureteral stent placement -will remove stent in 3-4 days and fu with Urology in 3-4 weeks Acute Urinary retention- resolved with st cath- cont to monitor further diagnoses and plan as noted by resident suspect will be able to dc in am to home <Rebceca Cool - Last Filed: 02/23/19 22:08> Hospitalist Progress Note - Encounter Date of Encounter: 02/23/19 Time of Encounter: 10:10 - Subjective Interval History: Seen and examined this morning at bedside. Patient is resting in bed and appears comfortable. Denies fevers, chills, nausea, vomiting, chest pain, difficulty breathing. Admits to some RLQ abdominal discomfort, which is improved since admission. Endorses no other complaints at this time. - Exam Vitals: Temp Pulse Resp BP Pulse Ox 98.2 F 66 16 132/80 95 02/23/19 07:12 02/23/19 07:12 02/23/19 07:12 02/23/19 07:12 02/23/19 07:12 Exam: Gen.: Vitals noted. No acute distress. HEENT: Normocephalic, atraumatic, EOMI, PERRL, moist mucous membranes Cardiac: RRR, no murmur, +S1/S2 Pulmonary: CTA bilaterally, no wheezes, rales or rhonchi, normal respiratory effort Abdomen: soft, RLQ > RUQ tender, Bowel sounds noted, no guarding or distension MSK: ROM intact, no joint swelling noted Extremities: no lower extremity edema, warm, nontender calves, no cyanosis or clubbing Neuro: Alert and oriented x3, moves all extremities spontaneously, no focal deficits, CN II-XII grossly intact Psych: Appropriate mood and behavior - Assessment and Plan (1) Urolithiasis Current Visit: Yes Status: Acute Assessment and Plan: Right-sided urolithiasis. Abdomen/pelvis CT: horseshoe kidney with moderate right hydroureteronephrosis secondary to 4 mm stone of distal right ureter. UA positive for leukocyte esterase, microscopic WBCs, urine bacteria. Final result UCx negative for growth. Afebrile, no leukocytosis. Urology planning for right ureteroscopic stone extraction today as pt unable to pass stone on his own. Discontinue ceftriaxone. Discontinue IV fluids and encourage oral hydration if pt able to tolerate PO after procedure. Continue with Flomax. PRN pain medication and Zofran for nausea. (2) Hydronephrosis due to obstruction of ureter Current Visit: Yes Status: Acute Assessment and Plan: Urology planning for cystoscopy and stone extraction in OR today. (3) TEMO (acute kidney injury) Current Visit: Yes Status: Resolved Assessment and Plan: Resolved, creatinine was 1.42 on admission. Acute kidney injury most likely combination of pre- and post-renal causes related to right-sided urolithiasis, acute urinary retention. Acute urinary retention appears to be resolved after straight cath. - OR today for stone extraction. - Discontinue IV fluids if tolerating PO intake after procedure. - Recheck serum creatinine on [facility] tomorrow since we are restarting home FELIPA inhibitor for his HTN. - Monitor UOP. (4) Hypertension Current Visit: Yes Status: Chronic Assessment and Plan: Will restart home FELIPA inhibitor now that TEMO has resolved. (5) BENITEZ on CPAP Current Visit: Yes Status: Acute Assessment and Plan: Continue CPAP at bedtime. (6) Hyperlipidemia Current Visit: Yes Status: Acute Assessment and Plan: Continue home dose simvastatin. DVT Prophylaxis: SubQ heparin - Time Spent with Patient Total time spent is greater than 50% in coordination of care (as documented) at patient's floor/unit and/or counseling patient: less than 15 minutes Plan of Care Discussed with: patient Internal Medicine: Result - Labs CBC & Chem 7: 02/23/19 07:30 02/23/19 07:30 Labs: Short CBC 02/23/19 Range/Units 07:30 WBC 6.0 (4.3-11.1) K/mcL Hgb 13.3 (12.9-16.9) g/dL Hct 40.3 (37.5-50.1) % Plt Count 241 (140-400) K/mcL BMP 02/23/19 07:30 Sodium 141 Potassium 3.8 Chloride 110 H Carbon Dioxide 24 BUN 12 Creatinine 0.94 Glucose 114 H Calcium 8.6 <Yoana Bryant - Last Filed: 02/23/19 13:53> (1) UTI (urinary tract infection) Qualifiers: Urinary tract infection type: site unspecified Hematuria presence: with hematuria Qualified Code(s): N39.0 - Urinary tract infection, site not specified; R31.9 - Hematuria, unspecified (2) Urolithiasis Qualifiers: Urinary calculus location: ureter Qualified Code(s): N20.1 - Calculus of ureter <Rebecca Cool - Last Filed: 02/23/19 22:08> (1) Urolithiasis Qualifiers: Urinary calculus location: ureter Qualified Code(s): N20.1 - Calculus of ureter (4) Hypertension Qualifiers: Hypertension type: unspecified Qualified Code(s): I10 - Essential (primary) hypertension
[2019-02-23] MEDS: (Ketotifen Fumarate [Zaditor] 1 DROP) OP SCH (10:15)
--- NOTE | 2019-02-23 10:29 | Anesthesia Evaluation PreOp ---
Date of Encounter: 02/23/19 Time of Encounter: 10:27 - Past History Planned Operation: Ureteroscopic stone extraction Cardiac History: HTN, Hyperlipidemia Pulmonary History: BENITEZ Dx (on cpap x 16yrs) Other Medical History: Renal (stone, hydronephrosis, TEMO), Diabetes Type II (borderline) Anesthesia History: No Prior Anesthetic Complications, Past Anesthesia (gaurav TKR) Alcohol Use: rarely Drug use: none Medications and Allergies Cetirizine HCl [24Hour Allergy] 10 mg PO DAILY 02/21/19 [History] Fluticasone Propionate Nasal [Flonase] 50 mcg NS BID PRN 02/21/19 [History] Ketotifen Fumarate [Zaditor] 1 drop BOTH EYES BID 02/21/19 [History] Lisinopril [Zestril] 20 mg PO DAILY 02/21/19 [History] Simvastatin [Zocor] 20 mg PO HS 02/21/19 [History] Tamsulosin [Flomax] 0.4 mg PO DAILY 02/21/19 [History] Allergy/AdvReac Type Severity Reaction Status Date / Time No Known Allergies Allergy Verified 02/21/19 16:11 - Meds/Allergy Pre-op Review Medications Reviewed: Yes Allergies Reviewed: Yes Beta Blockers on Current Med List: No Anesthesia Results - Labs 02/23/19 07:30 02/23/19 07:30 Anesthesia Exam Vital Signs/O2 Sat, Most Current Temp Pulse Resp BP Pulse Ox 97.9 F 66 16 154/83 95 02/23/19 10:21 02/23/19 10:21 02/23/19 10:21 02/23/19 10:21 02/23/19 10:21 Weight: 105kg NPO (# of Hours): >8 - HEENT Pupil (Motor): Pupils equal, EOMI Mallampati: III Teeth: Poor dentition Oral Opening: Greater than 3 - LUMP ROOM SUPERVISOR LOC: Oriented [employer] SUPERVISOR Motor: Normal RUE, Normal LUE, Normal RLE, Normal LLE, Normal Face [employer]PERVISOR Sensory: Normal: RUE, LUE, RLE, LLE, Face - Cardiac Rhythm: Regular - Pulmonary Breath Sounds: bilateral Clear Respiratory Effort: Symmetrical Anesthesia Assess/Plan ASA Score: 3 Level of consciousness: Cooperative Anesthetic Plan: General Monitoring Plan: Standard Monitors Recovery Plan: PACU
[2019-02-23] MEDS ORDERED: Isovue-300 50 ML VIAL ONE (10:53)
[2019-02-23] MEDS ORDERED: *HR* Succinylcholine 200 MG/10 ML VIAL IVP ONE (10:57)
[2019-02-23] MEDS ORDERED: Lidocaine -MPF 2% 2 ML VIAL ONE (10:57)
[2019-02-23] MEDS ORDERED: Dexamethasone 4 MG/ML VIAL ONE (10:57)
[2019-02-23] MEDS ORDERED: *HR* Propofol 200 MG/20 ML VIAL IVP ONE (10:57)
[2019-02-23] MEDS ORDERED: Ondansetron 4 MG/2 ML VIAL ONE (10:57)
[2019-02-23] MEDS ORDERED: *HR* FentaNYL (PF) 100 MCG/2 ML VIAL ONE (10:57)
[2019-02-23] MEDS ORDERED: *HR* HYDROmorphone (PF) 1 MG/ML SYRINGE IVP PRN (11:16)
[2019-02-23] MEDS ORDERED: *HR* Promethazine 25 MG/ML VIAL IVP PRN (11:16)
[2019-02-23] MEDS ORDERED: Ondansetron 4 MG/2 ML VIAL IVP ONE (11:16)
[2019-02-23] MEDS ORDERED: *HR* OxyCODONE Immed Rel 5 MG TABLET PO PRN (11:16)
[2019-02-23] MEDS ORDERED: Ringers Solution, Lactated 1,000 ML IVC SCH (11:30)
--- NOTE | 2019-02-23 11:55 | Operative Note ---
Date of procedure: 02/23/19 Pre-op diagnosis: Right distal ureteral stone Post-op diagnosis: same Procedure: Right ureteroscopic laser lithotripsy of stone, right ureteroscopic basket retrieval stone fragment, right 4.8 x 26 cm ureteral stent placement Anesthesia: STACEY Surgeon: Stu Carroll Was there an diver assistant present: No Estimated blood loss (cc): 0 Specimen: none Condition: stable Disposition: PACU Procedure in Detail: A shunt was prepped and draped in normal sterile fashion. Timeout procedure performed. I then inserted the semirigid ureteroscope into the patient's bladder. I then was able to cannulate the right ureteral orifice using a sensor wire. This was then placed into the right kidney using fluoroscopy. To note the patient did have a horseshoe kidney. I then matured the scope and then replaced the scope back in the patient's right distal ureter were encountered the form ohmmeter stone. I then using holmium laser fragment the stone. All stone fragments were then removed using a basket device. At this point I then fully surveyed the entire ureter with no further stone seen. I then placed a 4.8 x 26 cm stent with good curl seen in the right kidney as well as in the bladder. String was left for easy removal in 2-3 days.
--- NOTE | 2019-02-23 11:56 | Event Note ---
Date of Encounter: 02/23/19 Time of Encounter: 11:55 Patient okay to discharge home from urology standpoint. Patient can remove his own ureteral stent in 3-4 days. Patient needs follow-up with me in 3-4 weeks.
--- NOTE | 2019-02-23 12:32 | Anesthesia Evaluation Post Op ---
Date of Encounter: 02/23/19 Time of Encounter: 12:31 - Vital Signs Vital Signs: Vital Signs/O2 Sat, Most Current Temp Pulse Resp BP Pulse Ox 97.4 F L 65 19 148/92 94 02/23/19 12:03 02/23/19 12:23 02/23/19 12:23 02/23/19 12:23 02/23/19 12:23 - Lungs Lungs: Clear Ascult./Percussion - Airway Airway: Non-obstructed - Cardiovascular Regular Rate - Mental Status Mental Status: Alert & Oriented, Answers Appropriately - Pain Pain Scale: 0 Pain Scale used: Numeric (1 - 10) - Nausea Vomiting Nausea Vomiting: Not Present - Hydration Hydration: Ice chips - Discharge PostOp Status: Transfer Patient to floor
[2019-02-23] MEDS ORDERED: 0.9 % Sodium Chloride 1,000 ML IVC SCH (12:57)
[2019-02-23] MEDS ORDERED: Ondansetron 4 MG/2 ML VIAL IVP PRN (12:57)
[2019-02-23] MEDS ORDERED: OXYCODONE Oral CONC 10 MG/0.5 ML ORAL.SYG SL PRN (12:57)
[2019-02-23] MEDS ORDERED: Naloxone 0.4 MG/ML INJ IVP PRN (12:57)
[2019-02-23] MEDS: Lisinopril 20 MG TABLET PO SCH (17:50)
[2019-02-23] MEDS ORDERED: (Ketotifen Fumarate [Zaditor] 1 DROP) OP SCH (21:00)
[2019-02-24] MEDS: *HR* Heparin 5,000 UNIT/ML VIAL SQ SCH ×2 (05:26→17:38)
[2019-02-24 07:02] LABS: BUN/Creatinine Ratio 15 (6-26); Blood Urea Nitrogen 15 mg/dL (8-23); Calcium 9.1 mg/dL (8.6-10.3); Carbon Dioxide 22 mEq/L (23-29); Chloride 106 mEq/L (98-107); Glucose 136 mg/dL (70-105); Osmolality,Calculated 291 (280-300); Potassium 3.8 mEq/L (3.5-5.1); Sodium 139 mEq/L (136-145); eGFR For African Americans > 60 (> 60); eGFR For Non-African Americans > 60 (> 60)
[2019-02-24] MEDS: Lisinopril 20 MG TABLET PO SCH (08:54)
--- NOTE | 2019-02-24 10:06 | Internal Med Progress Note ---
<Rebecca Cool - Last Filed: 02/24/19 14:29> Hospitalist Progress Note - Encounter Date of Encounter: 02/24/19 Time of Encounter: 09:20 - Subjective Interval History: Overnight patient's right ureter stent was dislodged accidentally. Per nursing report Dr. Rebolledo urology was called and recommended completing removal of the st ent. This morning patient is in mild to moderate distress secondary to midline suprapubic pain described as stabbing and is feeling nauseous, but no episodes of emesis. Denies chest pain, breathing, fevers, sweats. Admits to chills and states he is freezing. His abdominal pain of RLQ and right CVA resolved, states the pain is now at midline of back. He feels his abdomen is distended and looks larger than normal. - Exam Vitals: Temp Pulse Resp BP Pulse Ox 97.9 F 70 24 183/80 99 02/24/19 07:14 02/24/19 07:14 02/24/19 07:14 02/24/19 07:14 02/24/19 07:14 Exam: Gen.: Appears uncomfortable, mild distress HEENT: Normocephalic, atraumatic, EOMI, PERRL, moist mucous membranes Cardiac: RRR, no murmur, +S1/S2, no edema Pulmonary: CTA bilaterally; no wheezes, rales or rhonchi; normal respiratory effort Abdomen: soft, distended, active Bowel sounds noted; no guarding : suprapubic tenderness on deep palpation MSK: ROM intact, no joint swelling noted Extremities: no lower extremity edema, no cyanosis or clubbing, warm Neuro: Alert and oriented x3, moves all extremities spontaneously, no focal defi cits, CN II-XII grossly intact Psych: Appropriate mood and behavior - Assessment and Plan (1) Urolithiasis Current Visit: Yes Status: Acute Assessment and Plan: Right-sided urolithiasis, now s/p right ureteroscopic stone extraction with stent placement by Dr. Carroll on 02/23/19 Abdomen/pelvis CT: horseshoe kidney with moderate right hydroureteronephrosis secondary to 4 mm stone of distal right ureter. UA positive for leukocyte esterase, microscopic WBCs, urine bacteria. Final result UCx negative for growth. Afebrile throughout admission CBC's have been negative for elevated white count. - Accidental removal of stent last night/early this morning, voided without difficulty or hematuria afterwords. - Repeat CT abd/pelvis: 4mm right UVJ stone seen on previous scan is no longer visible, moderate right hydroureteronephrosis, urinary bladder grossly unremarkable, no gross abnormality of prostate, colonic diverticulosis without focal inflammatory changes to suggest diverticulitis. Encourage oral hydration. Continue with Flomax. PRN Tylenol and Toradol for pain and Zofran for nausea. Urology following. From urology's standpoint, pt can be considered for d/c once adequate pain control achieved. Outpatient f/u with urology in 3-4 weeks. (2) Hydronephrosis due to obstruction of ureter Current Visit: Yes Status: Acute Assessment and Plan: s/p ureteroscopic extraction of right-sided kidney stone with Dr. Carroll 02/23/19. As above. (3) Abdominal pain Current Visit: Yes Status: Acute Assessment and Plan: Suspect this is due to constipation, pt able to pass gas but reports no bowel movement since last week. Repeat abd/pelvis CT findings as discussed above. Start Senna Plus once daily. Avoid opiates for pain control to prevent further constipation. Encourage ambulation. (4) TEMO (acute kidney injury) Current Visit: Yes Status: Resolved Assessment and Plan: Resolved. Creatinine was 1.42 on admission. Acute kidney injury most likely combination of pre- and post-renal causes related to right-sided urolithiasis, acute urinary retention. Acute urinary retention improved after straight cath. Home FELIPA inhibitor restarted yesterday, creatinine continues to be WNL. - Encourage PO fluids. (5) Hypertension Current Visit: Yes Status: Chronic Assessment and Plan: Continue home dose FELIPA inhibitor. Pain management with PRN Tylenol and Toradol. (6) BENITEZ on CPAP Current Visit: Yes Status: Acute Assessment and Plan: Continue CPAP at bedtime. (7) Hyperlipidemia Current Visit: Yes Status: Acute Assessment and Plan: Continue home dose simvastatin. DVT Prophylaxis: SubQ heparin - Time Spent with Patient Total time spent is greater than 50% in coordination of care (as documented) at patient's floor/unit and/or counseling patient: Plan of Care Discussed with: patient Internal Medicine: Result - Labs CBC & Chem 7: 02/23/19 07:30 06/18/19 05:38 Labs: BMP 02/24/19 05:38 Sodium 139 Potassium 3.8 Chloride 106 Carbon Dioxide 22 L BUN 15 Creatinine 0.98 Glucose 136 H Calcium 9.1 - Impressions Impressions Fluoroscopy 02/23/19 00:00 IMPRESSION: Intraprocedural fluoroscopic spot images as above. See separate procedure report for more information. D/ / 02/23/2019 12:16:53 Walt Carter MD / navneet Interpreting Provider: Walt Carter MD X-Ray 02/23/19 00:00 IMPRESSION: Intraprocedural fluoroscopic spot images as above. See separate procedure report for more information. D/ / 02/23/2019 12:16:53 Walt Carter MD / navneet Interpreting Provider: Walt Carter MD Consult Discharge Plan - Plan Additional Instructions: Follow up with your primary doctor within 1-2 weeks of discharge. Follow up with Dr. Carroll of [facility] as an outpatient in 3-4 weeks. Referrals: Stu Carroll MD [Partnered Physician] - [facility] [Primary Care Provider[facility] - <Yoana Bryant - Last Filed: 02/24/19 16:03> Hospitalist Progress Note - Encounter Date of Encounter: 02/24/19 - Exam Vitals: Temp Pulse Resp BP Pulse Ox 98.1 F 79 16 153/82 93 02/24/19 15:42 02/24/19 15:42 02/24/19 15:42 02/24/19 15:42 02/24/19 15:42 - Assessment and Plan (1) UTI (urinary tract infection) Current Visit: Yes Status: Acute (2) Urolithiasis Current Visit: Yes Status: Acute (3) TEMO (acute kidney injury) Current Visit: Yes Status: Resolved (4) DVT prophylaxis Current Visit: Yes Status: Acute (5) BENITEZ on CPAP Current Visit: Yes Status: Acute (6) History of cardiac arrhythmia Current Visit: Yes Status: Acute - Time Spent with Patient Total time spent is greater than 50% in coordination of care (as documented) at patient's floor/unit and/or counseling patient: Internal Medicine: Result - Labs CBC & Chem 7: 02/23/19 07:30 02/24/19 05:38 Labs: BMP 02/24/19 05:38 Sodium 139 Potassium 3.8 Chloride 106 Carbon Dioxide 22 L BUN 15 Creatinine 0.98 Glucose 136 H Calcium 9.1 - Impressions Impressions Abdomen/Pelvis CT 02/24/19 09:26 IMPRESSION: 1. Moderate right-sided hydroureteronephrosis as on the previous exam. The 4 mm stone seen at the right UVJ on the prior study is no longer visible and no ureteral stent is identified. There is a residual tiny punctate 1 mm stone at the right UVJ as described above. 2. 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 3. Colonic diverticulosis without evidence of diverticulitis. 4. Normal appendix. D/ / Jerry Hensley MD / Jerry Hensley MD Interpreting Provider: Jerry Hensley MD - Attending Attestation I examined this patient and my medical decision-making was reviewed with the Resident Physician Dr Cool. I agree with the documented findings, disposition and treatment plan as described except to the extent set forth below. Mr Chaudhary is admitted with urolithiasis with hydroureteronephrosis awake, suprapubic abd pain, + nausea, no fevers, chills or hematuria, urinating. notes no bm since days prior to admit, + flatus d/w Dr Rebolledo and stat CT a/p obtained which was negative PVR obtained and retainging significant urine to remain inpt for pain control gen- awake, alert, appears stated age, in distress from pain cv- reg rate and rhythm, normal s1s2 lungs- ctabl, normal resp effort on room air abd- soft,distended,d iffusely tender with guarding Urolithiasis with hydroureteronephrosis Ruled out UTI TEMO suspect was combination pre and post renal, resolved -OR lithotripsy and stone extraction w ureteral stent placement, pt accidentally removed stent overnight, Uro aware Acute Urinary retention- kline cath to be replaced, will likely dc on it, Uro following abd pain suspect 2/2 acute urinary retention given neg CT and location of symptoms- kline to be placed, bowel regimen for constipation likely contributing -prn pain control and monitor further diagnoses and plan as noted by resident suspect will be able to dc in am to home <Rebecca Cool - Last Filed: 02/24/19 14:29> (1) Urolithiasis Qualifiers: Urinary calculus location: ureter Qualified Code(s): N20.1 - Calculus of ureter (3) Abdominal pain Qualifiers: Abdominal location: lower abdomen, unspecified Qualified Code(s): R10.30 - Lower abdominal pain, unspecified (5) Hypertension Qualifiers: Hypertension type: unspecified Qualified Code(s): I10 - Essential (primary) hypertension (7) Hyperlipidemia Qualifiers: Hyperlipidemia type: unspecified Qualified Code(s): E78.5 - Hyperlipidemia, unspecified <Yoana Bryant - Last Filed: 02/24/19 16:03> (1) UTI (urinary tract infection) Qualifiers: Qualified Code(s): N39.0 - Urinary tract infection, site not specified; R31.9 - Hematuria, unspecified (2) Urolithiasis Qualifiers: Qualified Code(s): N20.1 - Calculus of ureter
[2019-02-24] MEDS ORDERED: Acetaminophen 325 MG TABLET PO PRN (11:50)
[2019-02-24] MEDS: Sennosides/Docusate Sodium TABLET PO SCH (13:17)
--- NOTE | 2019-02-24 13:48 | Urology Progress Note ---
<Faith Nieves N - Last Filed: 02/24/19 13:43> Date of Encounter: 02/24/19 Time of Encounter: 13:30 - Assessment and Plan (1) Urolithiasis Current Visit: Yes Status: Acute Assessment and plan: Patient is a 68-year-old male who presents one day status post right ureteroscopic laser lithotripsy of stone, right ureteroscopic basket retrieval stone fragment, right 4.8 x 26 cm ureteral stent placement. Patient continues with right flank pain and abdominal pain. CT was repeated, and the previously visualized 4 mm right UVJ stone is no longer visible. Patient with stable hydronephrosis. Vital signs are stable and reassuring, and renal function is well within normal range with GFR greater than 60. At this time, there is no urologic surgical intervention indicated. Patient may be considered for discharge once he achieves adequate pain control. Qualifiers: Urinary calculus location: ureter Qualified Code(s): N20.1 - Calculus of ureter Progress Note Narrative: Postoperative day #1. Patient seen and examined lying in bed in no apparent distress. Patient admits to continued abdominal and flank discomfort. Pain is currently well controlled at present. Patient proceeded is voiding well without difficulty, and urine is clear. Objective Initial Vital Signs Temp Pulse Resp BP Pulse Ox 98.2 F 65 16 129/80 99 02/21/19 16:12 02/21/19 16:12 02/21/19 16:12 02/21/19 16:12 02/21/19 16:12 - General physical appearance Present: well developed, no distress, moderate pain - Respiratory Present: normal expansion, normal respiratory effort - Abdomen Present: soft, non tender. Absent: distended - Genitourinary Urine Appearance: Present: Clear - Integumentary Present: no rash, no abnormal pigmentation - Musculoskeletal Present: normal posture - Psychiatric Present: oriented to time, oriented to person, oriented to place, speech is normal, memory intact - Labs 02/23/19 07:30 02/24/19 05:38 Diabetes panel 02/24/19 Range/Units 05:38 Sodium 139 (136-145) mEq/L Potassium 3.8 (3.5-5.1) mEq/L Chloride 106 (98-107) mEq/L Carbon Dioxide 22 L (23-29) mEq/L BUN 15 (8-23) mg/dL Creatinine 0.98 (0.70-1.30) mg/dL Glucose 136 H (70-105) mg/dL Calcium 9.1 (8.6-10.3) mg/dL Calcium panel 02/24/19 Range/Units 05:38 Calcium 9.1 (8.6-10.3) mg/dL Pituitary panel 02/24/19 Range/Units 05:38 Sodium 139 (136-145) mEq/L Potassium 3.8 (3.5-5.1) mEq/L Chloride 106 (98-107) mEq/L Carbon Dioxide 22 L (23-29) mEq/L BUN 15 (8-23) mg/dL Creatinine 0.98 (0.70-1.30) mg/dL Glucose 136 H (70-105) mg/dL Calcium 9.1 (8.6-10.3) mg/dL Adrenal panel 02/24/19 Range/Units 05:38 Sodium 139 (136-145) mEq/L Potassium 3.8 (3.5-5.1) mEq/L Chloride 106 (98-107) mEq/L Carbon Dioxide 22 L (23-29) mEq/L BUN 15 (8-23) mg/dL Creatinine 0.98 (0.70-1.30) mg/dL Glucose 136 H (70-105) mg/dL Calcium 9.1 (8.6-10.3) mg/dL Consult Discharge Plan - Plan Additional Instructions: Follow up with your primary doctor within 1-2 weeks of discharge. Follow up with Dr. Carroll of [facility] as an outpatient in 3-4 weeks. Referrals: Stu Carroll MD [Partnered Physician] - [place],PCP [Primary Care Provider] - <Thomas Rebolledo - Last Filed: 02/24/19 16:01> Date of Encounter: 02/24/19 - Assessment and Plan (1) Urolithiasis Current Visit: Yes Status: Acute Assessment and plan: Patient seen and examined independently. I am in agreement with the assessment and plan as outlined by our Urologic Surgery Department Physician Traffic Counter, Lizbeth. Post inadvertent stent removal CT images reviewed and interpreted independently. No residual obstructing calculi. Current pain secondary to renal obstruction from inflammation of the ureter following normal ureteroscopy holmium laser lithotripsy. Anticipate pain will resolve in the next 24-48 hours. Home when pain controlled on oral meds. No indications for further urologic intervention. Qualifiers: Urinary calculus location: ureter Qualified Code(s): N20.1 - Calculus of ureter Objective Initial Vital Signs Temp Pulse Resp BP Pulse Ox 98.2 F 65 16 129/80 99 02/21/19 16:12 02/21/19 16:12 02/21/19 16:12 02/21/19 16:12 02/21/19 16:12 - Labs 02/23/19 07:30 02/24/19 05:38 Diabetes panel 02/24/19 Range/Units 05:38 Sodium 139 (136-145) mEq/L Potassium 3.8 (3.5-5.1) mEq/L Chloride 106 (98-107) mEq/L Carbon Dioxide 22 L (23-29) mEq/L BUN 15 (8-23) mg/dL Creatinine 0.98 (0.70-1.30) mg/dL Glucose 136 H (70-105) mg/dL Calcium 9.1 (8.6-10.3) mg/dL Calcium panel 02/24/19 Range/Units 05:38 Calcium 9.1 (8.6-10.3) mg/dL Pituitary panel 02/24/19 Range/Units 05:38 Sodium 139 (136-145) mEq/L Potassium 3.8 (3.5-5.1) mEq/L Chloride 106 (98-107) mEq/L Carbon Dioxide 22 L (23-29) mEq/L BUN 15 (8-23) mg/dL Creatinine 0.98 (0.70-1.30) mg/dL Glucose 136 H (70-105) mg/dL Calcium 9.1 (8.6-10.3) mg/dL Adrenal panel 02/24/19 Range/Units 05:38 Sodium 139 (136-145) mEq/L Potassium 3.8 (3.5-5.1) mEq/L Chloride 106 (98-107) mEq/L Carbon Dioxide 22 L (23-29) mEq/L BUN 15 (8-23) mg/dL Creatinine 0.98 (0.70-1.30) mg/dL Glucose 136 H (70-105) mg/dL Calcium 9.1 (8.6-10.3) mg/dL
--- NOTE | 2019-02-24 17:49 | Electrocardiograph Report ---
[place] [address] Test Date: 2019-02-21 Pat Name: Jamin Chaudhary Department: [id number] Room: 3A Gender: M Sap Abap Developer: : [id number] Requested By: Delon Fregoso Order Number: [id number] Reading MD: Matilda Mora Measurements Intervals [place] Rate: 61 P: 22 AK: 196 QRS: 3 QRSD: 115 T: 14 QT: 442 QTc: 446 Interpretive Statements Sinus rhythm Ventricular premature complex Electronically Signed On 02-24-2019 17:48:11 EDT by Matilda Mora
[2019-02-25] MEDS: *HR* Heparin 5,000 UNIT/ML VIAL SQ SCH ×2 (05:28→20:48)
[2019-02-25 06:11] LABS: BUN/Creatinine Ratio 14 (6-26); Blood Urea Nitrogen 17 mg/dL (8-23); Calcium 8.8 mg/dL (8.6-10.3); Carbon Dioxide 25 mEq/L (23-29); Chloride 105 mEq/L (98-107); Glucose 131 mg/dL (70-105); Osmolality,Calculated 291 (280-300); Potassium 3.8 mEq/L (3.5-5.1); Sodium 139 mEq/L (136-145); eGFR For African Americans > 60 (> 60); eGFR For Non-African Americans > 60 (> 60)
[2019-02-25] MEDS: Lisinopril 20 MG TABLET PO SCH (08:47)
[2019-02-25] MEDS: Sennosides/Docusate Sodium TABLET PO SCH (08:47)
--- NOTE | 2019-02-25 09:05 | Discharge Summary ---
<oBb Heredia - Last Filed: 02/25/19 17:39> Date of Encounter: 02/25/19 - Discharge Diagnosis (1) UTI (urinary tract infection) Priority: Secondary Status: Acute Qualifiers: Urinary tract infection type: site unspecified Hematuria presence: with hematuria Qualified Code(s): N39.0 - Urinary tract infection, site not specified; R31.9 - Hematuria, unspecified (2) Urolithiasis Priority: Primary Status: Acute Qualifiers: Urinary calculus location: ureter Qualified Code(s): N20.1 - Calculus of ureter (3) TEMO (acute kidney injury) Priority: Secondary Status: Resolved (4) DVT prophylaxis Status: Acute (5) BENITEZ on CPAP Priority: Secondary Status: Acute (6) History of cardiac arrhythmia Status: Acute (7) Hypertension Priority: Secondary Status: Chronic Qualifiers: Hypertension type: essential hypertension Qualified Code(s): I10 - Essential (primary) hypertension (8) Hydronephrosis due to obstruction of ureter Priority: Secondary Status: Acute (9) Hyperlipidemia Priority: Secondary Status: Chronic Qualifiers: Hyperlipidemia type: mixed hyperlipidemia Qualified Code(s): E78.2 - Mixed hyperlipidemia (10) Constipation by delayed colonic transit Priority: Secondary Status: Acute Hospital course: Mr. Chaudhary is a 68 year old male - Time Spent with Patient Total time spent providing and/or coordinating discharge services: 32min - Discharge Medications Prescriptions: New Sennosides/Docusate Sodium [Senna Plus] 1 each PO DAILY #30 tablet Continued Simvastatin [Zocor] 20 mg PO HS Cetirizine HCl [24Hour Allergy] 10 mg PO DAILY Ketotifen Fumarate [Zaditor] 1 drop BOTH EYES BID Tamsulosin [Flomax] 0.4 mg PO DAILY Fluticasone Propionate Nasal [Flonase] 50 mcg NS BID PRN PRN Reason: Nasal Congestion Lisinopril [Zestril] 20 mg PO DAILY Home Medications: Cetirizine HCl [24Hour Allergy] 10 mg PO DAILY 02/21/19 [History] Fluticasone Propionate Nasal [Flonase] 50 mcg NS BID PRN 02/21/19 [History] Ketotifen Fumarate [Zaditor] 1 drop BOTH EYES BID 02/21/19 [History] Lisinopril [Zestril] 20 mg PO DAILY 02/21/19 [History] Simvastatin [Zocor] 20 mg PO HS 02/21/19 [History] Tamsulosin [Flomax] 0.4 mg PO DAILY 02/21/19 [History] Sennosides/Docusate Sodium [Senna Plus] 1 each PO DAILY #30 tablet 02/25/19 [Rx] Allergies/Adverse Reactions: Allergy/AdvReac Type Severity Reaction Status Date / Time No Known Allergies Allergy Verified 02/21/19 16:11 Date of admission: 02/21/19 19:21 Primary care physician: PCP [facility] Consults: 02/21/19 19:11 Consult to Urology [CONS] Stat Consulting Provider: [facility] Reason for Consult: obstructing stone, infection Call Completed: Yes - Constitutional Vitals: Temp Pulse Resp BP Pulse Ox 98.5 F 88 17 118/71 94 02/25/19 16:10 02/25/19 16:10 02/25/19 16:10 02/25/19 16:10 02/25/19 16:10 - Patient Status Disposition: Home, Self-Care Condition: Good - Discharge Instructions Instructions: Kline Catheter Placement and Care (DC) Follow Up With: Stu Carroll MD [Partnered Physician] - ( ) [facility] [Primary Care Provider] - Additional Instructions: Follow up with your primary doctor within 5-7 days of discharge. Follow up with Dr. Carroll of [facility] as an outpatient in 3-4 weeks. - Attending Attestation I examined this patient and my medical decision-making was reviewed with the [facility] [place] [facility] on 02/25/19. I agree with the documented findings, disposition and treatment plan as described except to the extent set forth below. Mr Chaudhary has been admitted for urolithiasis. He had issues with pain post procedure as well as with constipation. He had slowly improved. Exam as below. He is now afebrile and ready for discharge home. He had urinary retention and kline placed. Will follow up with urology. <Rebecca Cool - Last Filed: 02/25/19 21:54> - NOTES TO OUTPATIENT PROVIDER Notes to Outpatient Provider: Admitted for kidney stone with hydroureteronephrosis. Urology performed uretroscopy lithrotripsy with stent placement. Stent dislodged and was left out. Has follow up with urology. Should have a BMP to assess for now resolved TEMO. Date of Encounter: 02/25/19 Time of Encounter: 09:05 - Discharge Diagnosis (1) Urolithiasis Priority: Primary Status: Acute Qualifiers: Urinary calculus location: ureter Qualified Code(s): N20.1 - Calculus of ureter (2) Hydronephrosis due to obstruction of ureter Priority: Secondary Status: Acute (3) Abdominal pain Priority: Secondary Status: Acute Qualifiers: Abdominal location: lower abdomen, unspecified Qualified Code(s): R10.30 - Lower abdominal pain, unspecified (4) TEMO (acute kidney injury) Priority: Secondary Status: Resolved (5) Hypertension Priority: Secondary Status: Chronic Qualifiers: Hypertension type: essential hypertension Qualified Code(s): I10 - Essential (primary) hypertension (6) BENITEZ on CPAP Priority: Secondary Status: Acute (7) Hyperlipidemia Priority: Secondary Status: Chronic Qualifiers: Hyperlipidemia type: mixed hyperlipidemia Qualified Code(s): E78.2 - Mixed hyperlipidemia Hospital course: Mr. Chaudhary is a 68 year old male with a PMHx of HLD, HTN who presented with abdominal pain which radiated to his back. Workup in the ED found a WBC of 13.1, K of 3.4, Cr of 1.42. UA showed small blood, trace LE, few WBCs. CT was obtained and showed a horseshoe kidney with moderate right hydronephrosis secondary to a 4 mm stone in the distal right ureter. He was started on rocephin, flomax, and urology was consulted. He was admitted for further management of nephrolithiasis with hydronephrosis and TEMO. The stone did not pass with conservative management. On 02/24/19 urology did perform ureteroscopic lithotripsy with ureteral stent placement. Patient tolerated the procedure well. The stent was removed prior to discharge. Antibiotics were stopped as he UTI was lowere suspicion. He pain has now resolved. His vitals and labs have returned to baseline levels. He has a follow up appointment scheduled with urology as an outpatient. He would benefit with BMP shortly after discharge to assess for kidney function. Medication changes only significant for senna plus for constipation. He did develop urinary retention requiring kline catheter during admission however this has now resolved. He will be discharged home in stable medical condition Discharge discussed with: patient, family, social work - Time Spent with Patient Total time spent providing and/or coordinating discharge services: Date of admission: 02/21/19 19:21 Primary care physician: [facility]CP [facility] Consults: 02/21/19 19:11 Consult to Urology [CONS] Stat Consulting Provider: Leonardy Ann Reason for Consult: obstructing stone, infection Call Completed: Yes Discharging clinician: Rebecca Cool Anticipated date of discharge: 02/25/19 - Constitutional Vitals: Temp Pulse Resp BP Pulse Ox 97.8 F 79 16 135/72 94 02/25/19 07:20 02/25/19 07:20 02/25/19 07:20 02/25/19 07:20 02/25/19 07:20 General appearance: Present: cooperative, A&O X 3, pleasant, no acute distress, answers questions appropriately Exam: Gen.: Appears comfortable, no acute distress HEENT: Normocephalic, atraumatic, EOMI, PERRL, moist mucous membranes Cardiac: RRR, no murmur, +S1/S2, no edema Pulmonary: CTA bilaterally; no wheezes, rales or rhonchi; normal respiratory effort Abdomen: nontender, soft, nondistended, active Bowel sounds noted; no guarding MSK: ROM intact, no joint swelling noted Extremities: no lower extremity edema, no cyanosis or clubbing, warm Neuro: Alert and oriented x3, moves all extremities spontaneously, no focal deficits, CN II-XII grossly intact Psych: Appropriate mood and behavior - Patient Status Functional capacity at discharge: independent ambulation Overall status at discharge: patient is back to baseline - Diet and Activity Activity: increase activity as tolerated, return to work once cleared by your PCP/specialist, resume usual activities as tolerated Diet: advance to your usual diet
[2019-02-25] MEDS ORDERED: Bisacodyl 10 MG RECTAL SUPPOSITORY RC ONE (09:26)
[2019-02-25] MEDS ORDERED: Milk and Molasses Enema 200 ML RC ONE (16:27)
[2019-02-26] MEDS: *HR* Heparin 5,000 UNIT/ML VIAL SQ SCH (05:30)
[2019-02-26] MEDS: Lisinopril 20 MG TABLET PO SCH (08:20)
[2019-02-26] MEDS: Sennosides/Docusate Sodium TABLET PO SCH (08:21)
[2019-02-26 15:17] VITALS: BP 138/82
--- NOTE | 2019-02-26 17:07 | Internal Med Progress Note ---
Hospitalist Progress Note - Encounter Date of Encounter: 02/26/19 Time of Encounter: 12:45 - Subjective Interval History: Mr Chaudhary is currently admitted for obstructive kidney stone and constipation. He remains moderate risk at this time. Mr Chaudhary continues to have constipation. Drake out and he is able to urinate today. No fever or chills. Appetite OK. Overall he is doing better. Passing a lot of gas and has "rumbling" in abdomen. - Exam Vitals: Temp Pulse Resp BP Pulse Ox 97.7 F 84 14 138/82 96 02/26/19 15:15 02/26/19 15:15 02/26/19 15:15 02/26/19 15:15 02/26/19 15:15 Exam: Gen.: Appears comfortable, no acute distress Eating lunch H: Normocephalic EENT: Normocephalic, atraumatic, EOMI, moist mucous membranes Cardiac: RRR, no murmur, +S1/S2, no edema, no tachycardia Pulmonary: CTA bilaterally; no wheezes, rales or rhonchi; Abdomen: nontender, soft, nondistended, active Bowel sounds noted; No mass MSK: ROM intact, no joint swelling noted Extremities: no lower extremity edema, no cyanosis or clubbing, warm Neuro: Alert and oriented x3, moves all extremities spontaneously, no focal deficits Psych: Appropriate mood and behavior - Assessment and Plan (1) UTI (urinary tract infection) Status: Acute (2) Urolithiasis Status: Acute Assessment and Plan: Pt admitted for stone and underwent lithotripsy and stent. Stent is out. Continue urology management outpatient. (3) TEMO (acute kidney injury) Status: Resolved Assessment and Plan: Acute kidney injury does likely post renal in the setting of urolithiasis on right may also be contributed by prerenal from dehydration. Creatinine at admission 1.42 Resolved now (4) BENITEZ on CPAP Status: Acute Assessment and Plan: History of BENITEZ using the CPAP at bedtime. Continue treatment. (5) Hypertension Status: Chronic Assessment and Plan: Controlled on home meds (6) Hydronephrosis due to obstruction of ureter Status: Acute Assessment and Plan: Resolved after procedure (7) Hyperlipidemia Status: Chronic Assessment and Plan: Chronic issue (8) Constipation by delayed colonic transit Status: Acute Assessment and Plan: Continue PRN meds (9) UTI (urinary tract infection) due to urinary indwelling catheter Status: Acute - Time Spent with Patient Total time spent is greater than 50% in coordination of care (as documented) at patient's floor/unit and/or counseling patient: Internal Medicine: Result - Labs CBC & Chem 7: 02/23/19 07:30 02/25/19 05:13 Consult Discharge Plan - Plan Instructions: Urinary Tract Infection in Men (DC), Drake Catheter Placement and Care (DC) Additional Instructions: Follow up with your primary doctor within 5-7 days of discharge. Follow up with Dr. Carroll of [facility] as an outpatient in 3-4 weeks. Referrals: [facility] [Outside] - 03/03/19 1:00 pm Stu Carroll MD [Partnered Physician] - 03/24/19 1:00 pm ( ) Prescriptions: Sennosides/Docusate Sodium [Senna Plus] 1 each PO DAILY #30 tablet (1) UTI (urinary tract infection) Qualifiers: Urinary tract infection type: site unspecified Hematuria presence: with hematuria Qualified Code(s): N39.0 - Urinary tract infection, site not specified; R31.9 - Hematuria, unspecified (2) Urolithiasis Qualifiers: Urinary calculus location: ureter Qualified Code(s): N20.1 - Calculus of ureter (5) Hypertension Qualifiers: Hypertension type: essential hypertension Qualified Code(s): I10 - Essential (primary) hypertension (7) Hyperlipidemia Qualifiers: Hyperlipidemia type: mixed hyperlipidemia Qualified Code(s): E78.2 - Mixed hyperlipidemia (9) UTI (urinary tract infection) due to urinary indwelling catheter Qualifiers: Indwelling urinary catheter type: cystostomy catheter Encounter type: subsequent encounter Qualified Code(s): T83.510D - Infection and inflammatory reaction due to cystostomy catheter, subsequent encounter; N39.0 - Urinary tract infection, site not specified
== END 2019-02-26 16:49 | disposition home or self-care (01) | DRG 660 ==
LOC: EMEROOARM 16:03 → SUATTDRO 19:21 → 3ANU 19:21
PROVIDERS: ADMIT Family Medicine; ATTEND Internal Medicine